=== PATIENT | female | born 1990 | race Caucasian/White ===

== ENCOUNTER 2016-06-18 17:07 | Emergency (ER) | payer OTHER ==
[2016-06-18 19:00] LABS: HEMOGLOBIN 14.4 gm/dl (12.3-15.3); RED BLOOD COUNT 5.01 M/UL (4.00-5.10)
[2016-06-18 19:21] LABS: BUN/CREATININE RATIO 15 (0-10)
== END 2016-06-18 20:20 | disposition home or self-care (01) ==
LOC: ER1 17:07
PROVIDERS: Family Medicine
DX: R55 Syncope and collapse (principal); R53.83 Other fatigue; F17.210 Nicotine dependence, cigarettes, uncomplicated; Z91.040 Latex allergy status
CPT/HCPCS: 36415; 71020; 80053; 82550; 82553; 83874; 84484; 84703; 85025; 85379; 93005; 94664; 99284

== ENCOUNTER → 2016-07-23 | Outpatient (CLI) | payer OTHER | LOC: HEART 5 09:31 | DX: J45.909 Unspecified asthma, uncomplicated (principal); Z87.891 Personal history of nicotine dependence | CPT/HCPCS: 94010 ==

== ENCOUNTER → 2016-08-07 | Outpatient (CLI) | payer OTHER | LOC: RT 11:54 | DX: R55 Syncope and collapse (principal) ==

== ENCOUNTER → 2022-01-01 | Outpatient (CLI) | payer OTHER | LOC: KOH-I 12-27 13:00 | DX: E04.2 Nontoxic multinodular goiter (principal) | CPT/HCPCS: 76536 ==